=== PATIENT | female | born 1980 ===

== ENCOUNTER 2016-09-29 22:31 | Outpatient (CLI) | payer MEDICAID ==
[2016-09-29] MEDS ORDERED: LACTATED RINGERS 1,000 ML IV ONE (23:01)
[2016-09-29 23:35] VITALS: BP 117/69
[2016-09-29 23:39] LABS: Bilirubin,Urine NEG (Negative); Blood,Urine NEG (Negative); Ketones,Urine NEG (Negative); Leukocyte Esterase,Urine LG (Negative); Mucus,Urine FEW /HPF; Nitrite,Urine NEG (Negative); Protein,Urine <15 mg/dL mg/dL (Negative); Urobilinogen,Urine < 2.0 mg/dL (<2.0)
== END 2016-09-29 23:40 | disposition home or self-care (01) ==
LOC: TRG 22:31
PROVIDERS: ATTEND Obstetrics & Gynecology
DX: O42.92 Full-term premature rupture of membranes, unspecified as to length of time between rupture and onset of labor (principal); O26.892 Other specified pregnancy related conditions, second trimester; R25.2 Cramp and spasm
CPT/HCPCS: 81001